=== PATIENT | female | born 1930 | race Caucasian/White ===

== ENCOUNTER → 2016-12-06 | Outpatient (CLI) | payer OTHER | LOC: BHFA 13:45 | PROVIDERS: ATTEND Internal Medicine Interventional Cardiology | DX: Z01.810 Encounter for preprocedural cardiovascular examination (principal); I71.4 Abdominal aortic aneurysm, without rupture; F17.200 Nicotine dependence, unspecified, uncomplicated; E78.5 Hyperlipidemia, unspecified ==

== ENCOUNTER → 2017-08-08 | Outpatient (CLI) | payer OTHER | LOC: FIMAGING 12:42 | PROVIDERS: ATTEND Physician Assistant Medical | DX: Z13.6 Encounter for screening for cardiovascular disorders (principal); I50.9 Heart failure, unspecified; R41.3 Other amnesia; Z87.891 Personal history of nicotine dependence ==

== ENCOUNTER 2018-05-14 09:49 | Inpatient (IN) | payer OTHER ==
[2018-05-14] MEDS ORDERED: NS 500 ML IV ONE ×3 (09:50→17:54)
--- NOTE | 2018-05-14 10:29 | EDPHY ---
H & P Stated Complaint: Fall, N/V/D. Time Seen by Provider: 05/14/18 09:50 HPI/ROS: CHIEF COMPLAINT: Diarrhea, syncope HISTORY OF PRESENT ILLNESS: 87-year-old female with atrial fibrillation presents after a syncopal episode. Onset of multiple episodes of diarrhea yesterday. This morning her daughter helped her to the bathroom. The patient began to feel lightheaded after having diarrhea and had a near syncopal episode. She did not fall or hurt herself. Started Lasix 2 days ago for increasing abdominal girth. According to the daughter, the patient has had gradually increasing confusion over the last week. She normally takes care of herself, tends to her garden and drives. Hands and feet are normally purple for the past year. The patient has no complaints. No fever or recent illness. REVIEW OF SYSTEMS: complete 10 point ROS reviewed and is negative except for the noted elements in the HPI - Personal History Current Tetanus Diphtheria and Acellular Pertussis (TDAP): Unsure - Medical/Surgical History Hx Asthma: No Hx Chronic Respiratory Disease: Yes Hx Diabetes: No Hx Cardiac Disease: Yes Hx Renal Disease: No Hx Cirrhosis: No Hx Alcoholism: No Hx HIV/AIDS: No Hx Splenectomy or Spleen Trauma: No Other PMH: COPD. Heart failure. - Social History Smoking Status: Never smoked Alcohol Use: None Drug Use: None - Physical Exam Exam: General Appearance: Alert, pleasant Eyes: Pupils equal and round, no conjunctival pallor ENT, Mouth: Mucous membranes dry Neck: Normal inspection Respiratory: Tachypnea, rales at the bases Cardiovascular: Irregularly irregular tachycardia Gastrointestinal: Abdomen is soft, distended and nontender Neurological: A&O, motor 5/5, sensory grossly intact Skin: Warm and dry Extremities: Hands and feet are purple and cool Vascular: 1+ peripheral pulses Psychiatric: Mood and affect normal Constitutional: Initial Vital Signs Temperature (C) 37.2 C 05/14/18 09:54 Heart Rate 143 H 05/14/18 09:54 Respiratory Rate 15 05/14/18 09:54 Blood Pressure 122/66 H 05/14/18 09:54 O2 Delivery Mode Nasal Cannula O2 (L/minute) 2 Allergies/Adverse Reactions: No Known Allergies Allergy (Unverified 05/14/18 10:09) Home Medications: Medication Instructions Recorded Atorvastatin Calcium [Lipitor 10 10 mg PO DAILY 05/14/18 mg (*)] Cholecalciferol (Vitamin D3) 4,000 unit PO DAILY 05/14/18 [Vitamin D3] Cyanocobalamin [Vitamin B12 (*)] 100 mcg PO DAILY 05/14/18 Furosemide [Lasix 20 MG (*)] 80 mg PO DAILY 05/14/18 Spironolactone [Aldactone 25 MG 25 mg PO DAILY 05/14/18 (*)] Warfarin Sodium [Coumadin 2.5MG 2.5 mg PO DAILY16 05/14/18 (*)] Medical Decision Making - Diagnostics EKG Interpretation: EKG interpreted by me reveals atrial fibrillation, ventricular rate ED Course/Re-evaluation: This patient presents with significant dehydration and atrial fibrillation with RVR. Hypotensive prior to arrival, now blood pressure 122/80. IV normal saline 500 mL given. I had a prolonged discussion with the patient's daughter. The patient has an advance directive and DNR status. No recent infection or fever. If heart rate does not decline with IV fluids, will consider IV diltiazem. Labs reveal acute renal failure, consistent with acute renal failure. This is most likely secondary to severe dehydration. IV fluids infusing. The hospitalist service was consulted for admission. The patient remains asymptomatic and denies any complaints. Oral fluids given at patient request. noon: HR subsiding with IVF, will continue gentle IVF for now. 2pm: HR 108-122, BP 95/62, IVF infusing. Pt feels much better overall, tolerating oral fluids. Awaiting inpt bed. Differential Diagnosis: Differential diagnosis includes though is not limited to hypotension, severe anemia, UTI, pneumonia, electrolyte abnormality. - Data Points Laboratory Results: Laboratory Results 05/14/18 10:25 05/14/18 10:25 Medications Given: Sodium Chloride (Ns) 1,000 mls @ 150 mls/hr IV CONT JUAN M Stop: 11/10/18 14:44 Last Admin: 05/15/18 01:08 Dose: 1,000 mls Ertapenem 0.5 gm/ Sodium (Chloride) 50 mls @ 100 mls/hr IV DAILY JUAN M PRN Reason: Protocol Stop: 06/13/18 17:44 Last Admin: 05/15/18 08:41 Dose: 50 mls Metronidazole/Sodium Chloride (Flagyl 500 Mg (Premix)) 100 mls @ 100 mls/hr IV Q8HRS JUAN M PRN Reason: Protocol Stop: 06/13/18 21:59 Last Admin: 05/15/18 14:25 Dose: 100 mls Vancomycin HCl (Vancocin Oral Liquid) 125 mg PO QID JUAN M PRN Reason: Protocol Stop: 06/13/18 20:59 Last Admin: 05/15/18 16:07 Dose: 125 mg Discontinued Medications Sodium Chloride (Ns) 500 mls @ 0 mls/hr IV EDNOW ONE; Wide Open PRN Reason: Protocol Stop: 05/14/18 09:51 Last Admin: 05/14/18 10:30 Dose: 500 mls Sodium Chloride (Ns) 500 mls @ 1,000 mls/hr IV EDNOW ONE PRN Reason: Protocol Stop: 05/14/18 11:45 Last Admin: 05/14/18 11:20 Dose: 500 mls Sodium Chloride (Ns) 1,000 mls @ 3,000 mls/hr IV ONCE ONE Stop: 05/14/18 15:10 Last Admin: 05/14/18 15:23 Dose: 1,000 mls Sodium Chloride (Ns) 500 mls @ 1,500 mls/hr IV ONCE ONE Stop: 05/14/18 18:13 Last Admin: 05/14/18 18:06 Dose: 500 mls Point of Care Test Results: Chemistry 05/14/18 10:39 POC Troponin I 0.05 ng/mL ng/mL (0.00-0.08) Departure - Departure Disposition: [facility] Acute Clinical Impression: Dehydration, Atrial fibrillation with RVR Acute renal failure Qualifiers: Acute renal failure type: unspecified Qualified Code(s): N17.9 - Acute kidney failure, unspecified Condition: Serious
[2018-05-14 11:17] LABS: PLATELET COUNT 395 10^3/uL (150-400)
[2018-05-14] MEDS ORDERED: ACETAMINOPHEN 325 MG TAB PO PRN (14:41)
[2018-05-14] MEDS ORDERED: ONDANSETRON 4 MG/2 ML VIAL IVP PRN (14:41)
[2018-05-14] MEDS ORDERED: ONDANSETRON DISINTEGRATING 4 MG TAB PO PRN (14:41)
[2018-05-14] MEDS ORDERED: NS 1,000 ML IV ONE (14:51)
[2018-05-14 15:39] LABS: INR 3.14 (0.83-1.16); PROTIME(PATIENT) 32.1 SEC (12.0-15.0)
--- NOTE | 2018-05-14 15:39 | CPEKG ---
Test Reason : OPEN Blood Pressure : / mmHG Vent. Rate : 136 BPM Atrial Rate : 166 BPM P-R Int : 207 ms QRS Dur : 127 ms QT Int : 318 ms P-R-T Axes : 000 046 -71 degrees QTc Int : 479 ms Atrial fibrillation Ventricular premature complex Right bundle branch block Confirmed by Mary Alice Yuen ([id number]) on 05/14/2018 3:39:22 PM Referred By: Confirmed By:Mary Alice Yuen
--- NOTE | 2018-05-14 15:49 | GHP ---
DATE OF ADMISSION: 05/14/2018 CHIEF COMPLAINT: Weakness, diarrhea. HPI: The patient is an 87-year-old with a history significant for COPD, peripheral vascular disease, and congestive heart failure, and AFib. She had a bout of diarrhea a week and a half ago for 4 days. It improved. However, her PCP stopped all of her medications. This included Lasix, Coumadin, simvastatin. Throughout the week, she has been quite weak, poor p.o. intake, more confused than usual. Her daughter was so worried about her, she has been staying with her throughout the week. She also noted at the end last week her abdomen was starting to look more distended, so she called her primary care provider on Monday night and resumed Lasix 80 mg Monday and Monday. Monday night she started having multiple bouts of diarrhea, at least 8 per day, and brought her into the emergency room this morning after her mother passed out after going to the bathroom. Arriving here, she was in rapid atrial fibrillation and hypotensive. She has been given some IV fluids with some improvement in her heart rate. However, blood pressure is still quite low. The patient herself really has minimal complaints. She has had no fevers, chills, cough, urinary symptoms. Her abdomen is distended, but not tender. She does have a history of purple hands and feet that the daughter and patient have neglected to follow up with for evaluation. REVIEW OF SYSTEMS: A comprehensive review of systems was done and is with pertinent positives present in HPI. PAST MEDICAL HISTORY: 1. CHF. I do not have a recent echocardiogram. One was done at the PCPs office, however, I am unable to get that. 2. Atrial fibrillation. Had been on Coumadin. However, she is in the middle of transitioning over to Eliquis. 3. AAA status post endograft. 4. Peripheral vascular disease. 5. COPD, likely ongoing tobacco use. 6. Chronic edema. 7. Dyslipidemia. SOCIAL HISTORY: She currently lives alone and has been relatively independent up until the last couple weeks. Her daughter is currently living with her. ALLERGIES: No known drug allergies. FAMILY HISTORY: Parents are . CURRENT MEDICATIONS: Please see medicine reconciliation form. PHYSICAL EXAMINATION: VITAL SIGNS: She is afebrile. Heart rate is initially 150, currently 120, blood pressure 94/59, respirations 27. She is 92% on 2 L. GENERAL: She is a debilitated 87-year-old, in no obvious distress. She is alert, but not oriented completely. HEENT: Pupils are equal and small. Extraocular movements intact. Mucous membranes are dry. NECK: Supple. No adenopathy. HEART: Irregularly, irregular with a systolic murmur. LUNGS: Bibasilar rales. ABDOMEN: Distended, but nontender. EXTREMITIES: No significant edema. Diminished pulses bilaterally. Her feet are discolored and her hands are discolored. NEUROLOGICALLY: Her speech is fluent. She is moving all 4 extremities. MUSCULOSKELETAL: No deformities. PSYCH: Normal affect. LABORATORY DATA: CBC shows a white count of 19.4, hemoglobin 16.8, with a platelet count 395. Electrolytes are unremarkable, however, CO2 16, with a BUN of 103, creatinine of 2.0, glucose of 108. Troponin is negative. Electrocardiogram shows atrial fibrillation with a rapid ventricular response. ASSESSMENT AND PLAN: 87-year-old presents with 1-2 weeks of increasing weakness associated with diarrhea, poor p.o. intake, presenting with renal failure, rapid atrial fibrillation, and possible congestive heart failure. 1. Diarrhea, unclear etiology. Will rule out infectious causes. However, certainly severe heart failure could also contribute to diarrhea due to bowel ischemia. We will support her with fluids and workup the rest of her issues. 2. Acute renal failure, likely due to dehydration. However, will check a renal ultrasound to rule out hydronephrosis. Check her urinalysis for possible infection, and give her IV fluids gently, given her heart failure. 3. Congestive heart failure. Patient with history congestive heart failure. I do not have any more information about that. Will get an echocardiogram, check a BNP, try to get her heart rate under better control. Further information will determine on the echocardiogram. 4. Chronic obstructive pulmonary disease. Patient is not currently on oxygen at baseline, however, requires oxygen at this time. We will check a chest x- ray. 5. Atrial fibrillation with rapid ventricular rate. She currently is on Coumadin. However, after stopping the Coumadin several days ago, her INR is still elevated. Will repeat that at this time and hold anticoagulation until she is in an acceptable range and then start Eliquis per her doctor's request. 6. Peripheral vascular disease, status post endograft with diminished pulses bilaterally, stable. 7. Dyslipidemia. We will hold her statin at this time, given her other medical issues. 8. Code status. Talked with her daughter. She wishes to be a Do Not Resuscitate. I talked in detail about plan of care. They would like to get more information and rule out infection. However, if it comes to invasive procedures, they would like to talk with the MD BANGURA, her daughter, first. /[id number]/MODL MTDD
--- NOTE | 2018-05-14 17:23 | ECHO ---
[email or web address] [address] [address] Main: [phone] Fax: [email or web address] Echocardiogram Name: ILYA DIAL MR#: [id number] Study Date: 05/14/2018 Study Time: 03:18 PM Date of : 1930 Age: 87 year(s) Height: 175.3 cm (69 in.) Weight: 58.97 kg (130 lb.) BSA: 1.72 m2 Gender: Female Examination: Echo Indication: CHF Image Quality: Technically Difficult Contrast: Requested by: Ellie James BP: 105 mmHg/66 mmHg Heart Rate: Rhythm: Atrial fibrillation Indication: CHF Procedure Staff Property Specialist: Mary Ellen Lora [facility] Reading Physician: Arturo Chopar MD Requesting Provider: Conclusions: Normal size left ventricle. Mild concentric LV hypertrophy. Normal global systolic LV function. EF is 60 %. Normal RV function. The left atrium is severely dilated. The right atrium is severely dilated. The aortic valve is tri-leaflet. Mild aortic cusp calcification is noted. Mild aortic valve regurgitation is present. PHT 546 ms. Right ventricular systolic pressure measures 29mmHg. Moderate tricuspid regurgitation is present. No pericardial effusion. Measurements: Chambers Valvular Assessment AV/MV Valvular Assessment TV/PV Normal Normal Normal Name Value Range Name Value Range Name Value Range Ao Shanae (MM): 3.4 cm (2.2 cm-3.7 AV Vmax: 1.69 m/s (1 m/s-1.7 TR Vmax: 2.47 mm/s ( - ) cm) m/s) TR PGmax: 24 mmHg ( - ) IVSd (2D): 1.2 cm (0.6 cm-1.1 AV maxP mmHg ( - ) syst. PAP: 29 mmHg ( - ) cm) LVOT Vmax: 1.22 m/s (0.7 m/s-1.1 LVDd (2D): 4.2 cm (3.9 cm-5.3 m/s) cm) PHILLY (Vmax): 2.7 cm2 ( - ) LVDs (2D): 2.6 cm (2.1 cm-4 AR (PHT): 546 ms ( - ) cm) MV E Vmax: 0.68 m/s ( - ) LVPWd (2D): 1.2 cm ( - ) LVOTd 2.2 cm 2.2 cm mm LVEF (MOD4): 60 % (>=55 %) Patient: ILYA DIAL Study Date: 05/14/2018 Page 1 of 2 03:18 PM RVDd(2D): 2.9 cm (1.9 cm-3.8 cmmm) Continued Measurements: Chambers Valvular Assessment AV/MV Valvular Assessment TV/PV Name Value Name Value Name Value LADs Lon.0 cm AR Vmax: 3.96 cm/s CVP (est.): 5 mmHg LA Area: 34.6 cm2 LA Volume: 129 ml LA Volume Index: 75.0 ml/m2 RA Area: 20.9 cm2 Additional Vessels Name Value Ao Ascendin.4 cm Findings: Left Ventricle: Normal size left ventricle. Mild concentric LV hypertrophy. Normal global systolic LV function. EF is 60 %. No regional wall motion abnormality. Unable to assess diastolic dysfunction. Right Ventricle: Normal size right ventricle. Normal RV function. Left Atrium: The left atrium is severely dilated. Right Atrium: The right atrium is severely dilated. Mitral Valve: There is mild thickening of the mitral valve leaflets. Moderate mitral annular calcification. Trivial mitral valve regurgitation. No mitral stenosis is present. Aortic Valve: The aortic valve is tri-leaflet. Mild aortic cusp calcification is noted. No aortic valve stenosis is present. Mild aortic valve regurgitation is present. PHT 546 ms. Tricuspid Valve: The tricuspid valve appears normal. Right ventricular systolic pressure measures 29mmHg. The pulmonary artery pressure is normal. Moderate tricuspid regurgitation is present. Pulmonic Valve: Pulmonary valve not well visualized. Aorta: Normal size aortic root measuring 3.4 cm. Normal size ascending aorta measuring 3.4 cm. IVC: The IVC is not visualized. Pericardium: No pericardial effusion. (No Signature Object) Patient: ILYA DIAL Study Date: 05/14/2018 Page 2 of 2 03:18 PM [id number]
--- NOTE | 2018-05-14 17:52 | HOSPPROG ---
Hospitalist Progress Note Assessment/Plan: fu after admit, Pt with cxr showing free air, Abdominal exam is benign however given her abdominal distension will have General surgery see and evaluate her. Will start her on Invanz, continue IV fluids and check an LDH for sepsis. Unclear if tachycardia is clearly from AFib or combination of AFib and sepsis. Patient also has significant urinary retention and a Krueger catheter was placed. Heart rate has improved significantly with IV fluids. Long discussion with family regarding the above findings and plan of care Greater than 30 min of critical care time spent with patient Objective: Vital Signs Temp Pulse Resp BP Pulse Ox 36.6 C 111 H 20 92/58 L 93 05/14/18 16:57 05/14/18 16:57 05/14/18 16:57 05/14/18 17:20 05/14/18 16:57 Laboratory Results 05/14/18 15:18 05/13/18 05/14/18 05/15/18 05:59 05:59 05:59 Intake Total 2000 Balance 1999 PT 32.1 SEC (12.0-15.0) H 05/14/18 15:14 INR 3.14 (0.83-1.16) H 05/14/18 15:14 ICD10 Worksheet Patient Problems: Problems Problem Status Onset Acute renal failure Acute Atrial fibrillation with RVR Acute Dehydration Acute Free intraperitoneal air Acute
[2018-05-14] MEDS: ERTAPENEM 0.5 GM in NS 50 ML IV SCH (18:32)
[2018-05-14] MEDS: NS 1,000 ML IV SCH (19:00)
--- NOTE | 2018-05-14 19:45 | SOAPPROG ---
SOAP Progress Note Assessment/Plan: Assessment: 87 female with free air and wbc 19k but nontender and afebrile, very distended and tympanitic ct shows descending colon obstruction and free air and ascites pt and family refusing surgery at this time INR >3 Plan:will observe but risks and options fully discussed including sepsis and 05/14/18 19:41 Objective: Vital Signs Temp Pulse Resp BP Pulse Ox 36.6 C 111 H 20 92/58 L 93 05/14/18 16:57 05/14/18 16:57 05/14/18 16:57 05/14/18 17:20 05/14/18 16:57 Microbiology 05/14/18 17:30 Gastrointestinal Tract Panel (PCR) - Final Stool Clostridium Difficile Detected Laboratory Results 05/14/18 15:18 05/13/18 05/14/18 05/15/18 05:59 05:59 05:59 Intake Total 2020 Output Total 450 Balance 1570 PT 32.1 SEC (12.0-15.0) H 05/14/18 15:14 INR 3.14 (0.83-1.16) H 05/14/18 15:14 ICD10 Worksheet Patient Problems: Problems Problem Status Onset Free intraperitoneal air Acute - ICD10 Problem Qualifiers (1) Free intraperitoneal air
[2018-05-14] MEDS: VANCOMYCIN 125 MG/2.5 ML UDL PO SCH (20:05)
[2018-05-15] MEDS: NS 1,000 ML IV SCH (01:08)
[2018-05-15 04:53] LABS: PLATELET COUNT 280 10^3/uL (150-400)
[2018-05-15] MEDS: VANCOMYCIN 125 MG/2.5 ML UDL PO SCH ×4 (05:35→21:46)
--- NOTE | 2018-05-15 08:04 | HOSPPROG ---
Hospitalist Progress Note Assessment/Plan: fu after admit, Pt with cxr showing free air, Abdominal exam is benign however given her abdominal distension will have General surgery see and evaluate her. Will start her on Invanz, continue IV fluids and check an LDH for sepsis. Unclear if tachycardia is clearly from AFib or combination of AFib and sepsis. Patient also has significant urinary retention and a Krueger catheter was placed. Heart rate has improved significantly with IV fluids. Long discussion with family regarding the above findings and plan of care Greater than 30 min of critical care time spent with patient Objective: Vital Signs Temp Pulse Resp BP Pulse Ox 36.4 C 105 H 19 85/54 L 98 05/15/18 07:23 05/15/18 07:23 05/15/18 04:00 05/15/18 07:23 05/15/18 07:23 Microbiology 05/14/18 17:30 Gastrointestinal Tract Panel (PCR) - Final Stool Clostridium Difficile Detected Laboratory Results 05/15/18 03:56 05/15/18 03:56 05/14/18 05/15/18 05/16/18 05:59 05:59 05:59 Intake Total 2020 Output Total 450 425 Balance 1570 -425 PT 32.1 SEC (12.0-15.0) H 05/14/18 15:14 INR 3.14 (0.83-1.16) H 05/14/18 15:14 ICD10 Worksheet Patient Problems: Problems Problem Status Onset Free intraperitoneal air Acute
[2018-05-15] MEDS: ERTAPENEM 0.5 GM in NS 50 ML IV SCH (08:41)
--- NOTE | 2018-05-15 14:35 | HOSPPROG ---
Hospitalist Progress Note Assessment/Plan: 87-year-old with COPD and ongoing tobacco use is admitted with several days of intermittent diarrhea, lightheadedness and was found to be in rapid AFib and hypotension. Evaluation revealed free air and fluid in her abdomen with minimal tenderness. She also has C diff colitis. # C diff colitis in the setting of a likely bowel obstruction and free air. I suspect the PO Vanco may not be absorbed well and IV Flagyl was added to her regimen. Her diarrhea is much improved today and her family would like to treat the C diff for comfort measures. * Continue IV Flagyl for now, Discussed with ID who has no specific recommendations in this case * IV flagyl til dc then transition to PO vanco at 250 qid and immodium as needed. * Diarrhea is improved # free air noted in the abdomen with fluid. CT scan concerning for bowel obstruction and likely perforation at that area. Case discussed in detail with surgery who met with the patient and the patient is declining any surgical intervention. I had a long discussion with the patient and daughter regarding the poor prognosis of this issue with or without surgical intervention. They are considering palliative care and hospice but are interested in treating the C diff colitis to avoid further diarrhea. * Continue to treat C diff with IV Flagyl while in hospital * treat peritonitis with ceftriaxone while in hospital and dc abx when dc with hospice. * Discussed with ID who agrees with plan (no formal consult). * Hospice consult in the morning for dc planning. If decompensates overnight, the family is aware that she might # sepsis in the setting of free air and peritonitis with minimal pain. Patient is hypotensive and tachycardic (due to AFib) given the fact she does not want definitive treatment with surgery I will not start her on the sepsis protocol but will treat her with antibiotics and supportive care with IV fluids as needed. She is a do not resuscitate and the family does not want extraordinary measures. * Decrease fluid slightly and watch blood pressure * Family aware of possibility of and agrees to make her comfortable tonight if she drops her pressure and not transfer to icu # AFib with rapid ventricular rate likely secondary to her above issues. * will follow, no treatment at this time, asymptomatic. # COPD, patient states she quit smoking but the daughter think she is still smoking some. * Follow clinically, respiratory status is relatively stable # AAA s/p endograft. Patient and family well aware of her very poor prognosis the goal is comfort and treatment of the C diff colitis. Family meeting with hospice tomorrow and will determine dc plans. Possible SNF with hospice [facility]. Subjective: Long discussion with patient and daughter regarding her prognosis in status. She continues to be comfortable but feels a little bit confused and has difficulty focusing on her conversation no abdominal pain Objective: Vital Signs Temp Pulse Resp BP Pulse Ox 36.5 C 109 H 18 93/56 L 98 05/15/18 12:00 05/15/18 12:00 05/15/18 12:00 05/15/18 12:00 05/15/18 12:00 Microbiology 05/14/18 17:30 Gastrointestinal Tract Panel (PCR) - Final Stool Clostridium Difficile Detected Laboratory Results 05/15/18 03:56 05/15/18 03:56 05/14/18 05/15/18 05/16/18 05:59 05:59 05:59 Intake Total 2020 Output Total 450 425 Balance 1570 -425 PT 32.1 SEC (12.0-15.0) H 05/14/18 15:14 INR 3.14 (0.83-1.16) H 05/14/18 15:14 - Physical Exam Constitutional: not in pain, chronically ill appearing Eyes: PERRL Ears, Nose, Mouth, Throat: moist mucous membranes Cardiovascular: irregularly irregular, tachycardia Respiratory: no respiratory distress, reduced air movement Gastrointestinal: distension, other (Umbilical hernia noted), No tenderness (No tenderness to deep palpation abdomen quite distended on exam) Genitourinary: holden in urethra Skin: No normal color (Pale) Musculoskeletal: generalized weakness Neurologic: No facial droop Psychiatric: interacting appropriately ICD10 Worksheet Patient Problems: Problems Problem Status Onset Free intraperitoneal air Acute Acute renal failure Acute Dehydration Acute Atrial fibrillation with RVR Acute
--- NOTE | 2018-05-15 15:06 | SOAPPROG ---
SOAP Progress Note Assessment/Plan: Assessment/Plan: 87 Y F c c dif colitis, free air, likely colonic perforation. Afib, tachycardia, hypotensive, JADE. Some improvement with fluid resuscitation, IV and PO flagyl and ertapenem. Cr now 1.7. HR still elevated but improved. Patient and daughter politely refusing surgical intervention. They understand that the situation is grave and potentially deadly without surgery. Per daughter, they have met with palliative care. Will be here if they change mind and wish to pursue surgery. Patient sleeping. Did not awaken. Spoke with daughter, POA, bedside. 05/15/18 15:02 Objective: Vital Signs Temp Pulse Resp BP Pulse Ox 36.5 C 109 H 18 93/56 L 98 05/15/18 12:00 05/15/18 12:00 05/15/18 12:00 05/15/18 12:00 05/15/18 12:00 Microbiology 05/14/18 17:30 Gastrointestinal Tract Panel (PCR) - Final Stool Clostridium Difficile Detected Laboratory Results 05/15/18 03:56 05/15/18 03:56 05/14/18 05/15/18 05/16/18 05:59 05:59 05:59 Intake Total 2020 Output Total 450 425 Balance 1570 -425 PT 32.1 SEC (12.0-15.0) H 05/14/18 15:14 INR 3.14 (0.83-1.16) H 05/14/18 15:14 ICD10 Worksheet Patient Problems: Problems Problem Status Onset Free intraperitoneal air Acute
--- NOTE | 2018-05-15 16:19 | ASMTCMCOM ---
CM Note CM Note Notes: 05/15/2018 Case Management Note Pt admitted for syncope and malaise. Hospice consult ordered. Jatinder from Palliative team met w/pt pt and children. Blanka [phone] and Vahe [phone]. Please see note for details. Faxed referral to [facility]. Family aware they will private pay for a room. Vahe to activate manager long term care care insurance policy. Discussed hospice agencies. Faxed referral to [facility]. Requested meetings with family tomorrow between 9 am and 1 pm. Case Management d/c poc: to be determined. SNF with hospice Case Management to follow. Date Signed: 05/15/2018 04:19 PM Electronically Signed By:Wilda Ocampo RN
[2018-05-15] MEDS ORDERED: LORazepam 2 MG/ML INJ IVP PRN (21:40)
--- NOTE | 2018-05-15 23:05 | PDMN ---
Medical Necessity Medical necessity: Pt meets IP criteria as of 05/14/2018 per and MCG M-160 ( sepsis); los > 2mn for ongoing tx and management of sepsis with hypotension and tachycardia in the setting of likely bowel obstruction with likely perforation as well as C.diff infection and afib.
[2018-05-16] MEDS: VANCOMYCIN 125 MG/2.5 ML UDL PO SCH ×4 (05:46→22:18)
[2018-05-16] MEDS: NS 1,000 ML IV SCH (07:19)
--- NOTE | 2018-05-16 08:59 | SOAPPROG ---
SOAP Progress Note Assessment/Plan: Assessment/Plan: 87 Y F c c dif colitis, free air, likely colonic perforation. Afib, tachycardia, hypotensive, JADE. Checked in again today. Patient still not wanting surgery. We will continue to follow from a distance but please contact us if patient and family change their minds. She is very lucid and is very aware that this is life threatening..."I'm 87," she says as she shrugs shoulders. Thanks. alert, oriented abd still distended, still NT, maybe slightly softer 05/16/18 08:59 Objective: Vital Signs Temp Pulse Resp BP Pulse Ox 36.2 C 102 H 20 97/61 L 93 05/16/18 07:40 05/16/18 07:40 05/16/18 07:40 05/16/18 07:40 05/16/18 07:40 Laboratory Results 05/15/18 03:56 05/15/18 03:56 05/15/18 05/16/18 05/17/18 05:59 05:59 05:59 Intake Total 1736 Output Total 1175 Balance 561 PT 32.1 SEC (12.0-15.0) H 05/14/18 15:14 INR 3.14 (0.83-1.16) H 05/14/18 15:14 ICD10 Worksheet Patient Problems: Problems Problem Status Onset Acute renal failure Acute Atrial fibrillation with RVR Acute Dehydration Acute Free intraperitoneal air Acute
--- NOTE | 2018-05-16 09:26 | HOSPPROG ---
Hospitalist Progress Note Assessment/Plan: 87yo F with COPD presented with diarrhea found to have C diff as well as free air in abdomen. She is also hypotensive and in afib with RVR. She is declining any aggressive measures or surgical intervention and now pursuing hospice. 1. Suspected bowel perforation: With free intra-abdominal air on imaging. - Surgery following. Patient not wanting any surgical intervention - Discontinue IV ceftriaxone and flagyl (no longer has IV access and not wanting additional IV) 2. C diff colitis - Continue PO vancomycin to complete course 3. Atrial fibrillation with RVR: Due to above. She is asymptomatic. - No treatment at this time. - Stopped warfarin 4. Sepsis with hypotension: BP ok but low. She denies dizziness. - She is ok with receiving IV fluids but does not want extraordinary measures 5. COPD: No exacerbation. 6. AAA s/p endograft. Goals of care: She and her family met with hospice today. This is in line with her goals and she has decision making capacity. Family looking at SNF. Dispo: Remain inpatient, possibly discharge tomorrow to SNF with hospice. Code: DNR/DNI Subjective: No abdominal pain. Eating breakfast. No change since yesterday. Still not wanting any aggressive measures/surgery. Objective: Vital Signs Temp Pulse Resp BP Pulse Ox 36.2 C 102 H 20 97/61 L 93 05/16/18 07:40 05/16/18 07:40 05/16/18 07:40 05/16/18 07:40 05/16/18 07:40 Laboratory Results 05/15/18 03:56 05/15/18 03:56 05/15/18 05/16/18 05/17/18 05:59 05:59 05:59 Intake Total 1736 Output Total 1175 Balance 561 PT 32.1 SEC (12.0-15.0) H 05/14/18 15:14 INR 3.14 (0.83-1.16) H 05/14/18 15:14 - Physical Exam Constitutional: no apparent distress, other (elderly, frail) Eyes: anicteric sclera Ears, Nose, Mouth, Throat: moist mucous membranes, hearing normal, ears appear normal, no oral mucosal ulcers Cardiovascular: tachycardia, No edema Respiratory: no respiratory distress, no rales or rhonchi, clear to auscultation Gastrointestinal: distension, No tenderness, No guarding Genitourinary: no bladder fullness, no bladder tenderness, no renal bruits Skin: no rashes or abrasions, no fluctuance, no induration Musculoskeletal: generalized weakness Neurologic: AAOx3 Psychiatric: interacting appropriately ICD10 Worksheet Patient Problems: Problems Problem Status Onset Acute renal failure Acute Atrial fibrillation with RVR Acute Dehydration Acute Free intraperitoneal air Acute
[2018-05-16] MEDS ORDERED: oxyCODONE IR 5 MG TAB PO PRN (18:46)
[2018-05-17] MEDS: VANCOMYCIN 125 MG/2.5 ML UDL PO SCH ×2 (06:21→12:42)
[2018-05-17 11:01] VITALS: BP 99/76
--- NOTE | 2018-05-17 12:12 | PDIAF ---
- Diagnosis Code Status: Do Not Resuscitate - Medication Management Additional Medication Instructions: Stopped warfarin and spironolactone. Continue PO vancomycin 125mg QID through 05/24/2018. Continue lasix 40mg QD. Start oxycodone 5mg PO Q4H PRN. Discharge Medications: electronically signed and located in the Home Medication List. PICC Care - Routine: N/A - Orders Isolation Type: CDIFF Isolation Diet Recommendation: no restrictions on diet Krueger: Not applicable Additional Instructions: The following medications were changed: - Decreased your lasix to 40mg once daily - Stopped your warfarin - You should continue oral vancomycin 125mg four times daily through 2018 - I stopped your spironolactone (will lower your blood pressure) - I have ordered oxycodone 5mg every 4 hours as needed for pain - Follow Up Care Current Providers and Referrals: Patient,NotPresent [Unknown] - As per Instructions
--- NOTE | 2018-05-17 12:15 | PDDCSUM ---
Discharge Summary Discharge Summary: Date of Admission: 05/14/2018 Date of Discharge: 05/17/2018 Consultants: general surgery Studies/Procedures: 1. TTE - LVEF 60%, normal RV function, severely dilated LA and RA, RVSP 29mmHg, moderate TR 2. Abdominal US - mild left hydronephrosis, very dilated loops of bowels throughout abdomen, small amount of ascites 3. 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 Suspected colonic perforation with free abdominal air, related to 2. Large bowel obstruction, in setting of 3. C difficile colitis 4. Severe sepsis with fluid responsive hypotension 5. Atrial fibrillation with RVR currently not on anticoagulation 6. Acute hypoxemic respiratory failure 7. Acute kidney injury 8. Hypovolemic hyponatremia 9. Chronic diastolic CHF 10. COPD 11. AAA s/p endograft 12. ? Bilateral UPJ obstructions, urinating ok without holden catheter Brief Hospital Course: 87yo F with COPD, Afib on warfarin, chronic diastolic CHF presented with diarrhea found to have C diff as well as a large amount of free air in abdomen. She was meeting severe sepsis criteria with JADE (Cr 2.0), hypotension, and developed atrial fibrillation with HR in the 140-150s. She was started on IV ceftriaxone, IV metronidazole, and PO vancomycin. General surgery was consulted. Numerous conversations were had with patient and family and patient elected to not have surgery. She did not want any aggressive measures besides IV antibiotics and IV fluids. She did not want aggressive measures or new medications to control her afib. Fortunately, she clinically improved with surgical intervention. Her hemodynamics were stable, creatinine down to 1.1, and abdominal distention had improved. She was still passing flatus at discharge. The patient and family met with 3 hospice services and decided on pursuing [facility]. She is being discharged to [facility]. The family is hopeful that she may be able to "graduate" from hospice if she continues to improve but are cautiously optimistic given her clinical situation. She is a DNR/DNI. Regarding her atrial fibrillation, we have decided to hold all anticoagulation for now due to risk of GI bleeding and fall risk. She should follow up with PCP regarding resuming this in the future. Lastly, she is requiring 4-5L of O2. This is partly due to mild pulmonary edema in setting of aggressive fluid resuscitation. We have resumed her diuretics at a lower dose. She was not having a COPD exacerbation. Medications: Please refer to EMR for complete list. Changes made this admission include the followin. Stopped warfarin and spironolactone. 2. Decreased lasix from 80 to 40mg QD 3. Started PO vancomycin 125mg QID through 05/24 Follow Up Plan: 1. Discharging to [facility] with hospice services Physical Exam: Vitals reviewed, afebrile, HR low 100s, SBP 100s. Alert and oriented, no focal neuro deficits, irregularly irregular and slightly tachycardic, lungs with bibasilar decreased breath sounds, abdomen distended but minimally tender, decreased bowel sounds, no rash or edema.
--- NOTE | 2018-05-17 13:11 | ASMTDCNOTE ---
Case Management Discharge Discharge Order Complete? Answers: Yes Patient to Obtain Answers: Other Notes: [facility] Medications Transportation Arranged Answers: [facility] Stretcher Transport will Pick (Date 05/17/2018 12:00 AM & Time) Case Management Transport Answers: Yes Notes: [facility] for [facility] Form Complete Faxed Final Orders Answers: Yes Notes: [facility] Agency/Facility Transfer Answers: Yes Notes: [facility] Report Printed & Faxed to Receiving Agency Family Notified Answers: Yes Notes: daughter, Blanka Discharge Comments Notes: Patient to discharge today to [facility] support. Discharge summaries Allscripted to both [facility].Transport arranged with [facility], patient going stretcher with 4L O2, at 15:30 today(). [facility] have been notified. No further needs. Date Signed: 05/17/2018 01:10 PM Electronically Signed By:Sonia Mary LCSW
--- NOTE | 2018-05-17 13:16 | PDIAF ---
- Diagnosis Code Status: Do Not Resuscitate - Medication Management Additional Medication Instructions: Stopped warfarin and spironolactone. Continue PO vancomycin 125mg QID through 05/24/2018. Continue lasix 40mg QD. Start oxycodone 5mg PO Q4H PRN. Discharge Medications: electronically signed and located in the Home Medication List. PICC Care - Routine: N/A - Orders Isolation Type: CDIFF Isolation Diet Recommendation: no restrictions on diet Krueger: Yes (Placed 05/15/2018.) Additional Instructions: The following medications were changed: - Decreased your lasix to 40mg once daily - Stopped your warfarin - You should continue oral vancomycin 125mg four times daily through 2018 - I stopped your spironolactone (will lower your blood pressure) - I have ordered oxycodone 5mg every 4 hours as needed for pain - Follow Up Care Current Providers and Referrals: Patient,NotPresent [Unknown] - As per Instructions
--- NOTE | 2018-05-17 13:28 | ASDISCHSUM ---
Discharge Information Plan Status:SNF Medically Cleared to Leave:05/16/2018 Discharge Date:05/16/2018 CM D/C Disposition:Care Home Facility ADT D/C Disposition:Care Home Facility Projected Discharge Date:05/17/2018 11:00 AM Transportation at D/C:Other Discharge Delay Reason: Follow-Up Date:05/17/2018 11:00 AM Discharge Slot:2 - 12:01 pm - 18:00 pm Final Diagnosis:AFIB, Renal failure, dehydration Placement Information Referral Type:*Hospice Referral ID:[id number] Provider Name:[facility] Address 1:[address] [place] Address 2: City:[place] Selection Factors: State:[place] Referral Type:*Usp/SNF Referral ID:[id number] Provider Name:[facility] Address 1:[address] Address 2: City:[place] Selection Factors: State:[place] Patient Contact Information Contact Name:VIC Relationship:Daughter Address: City: [facility] Phone: State/Zip Code: Email: Financial Information Financial Class:Medicare Primary Plan Desc:MEDICARE INPATIENT Primary Plan Number:[id number] Secondary Plan Desc:KEREN PETERSON Secondary Plan Number:[id number] Assessment Information [facility] CM Progress Note CM Note CM Note Notes: 05/15/2018 Case Management Note Pt admitted for syncope and malaise. Hospice consult ordered. Jatinder from Palliative team met w/pt pt and children. Blanka [phone] and Vahe [phone]. Please see note for details. Faxed referral to [facility]. Family aware they will private pay for a room. Vahe to activate longterm care insurance policy. Discussed hospice agencies. Faxed referral to [facility]. Requested meetings with family tomorrow between 9 am and 1 pm. Case Management d/c poc: to be determined. SNF with hospice Case Management to follow. Date Signed: 05/15/2018 04:19 PM Electronically Signed By:Wilda Ocampo RN Case Management Discharge Plan Note Case Management Discharge Discharge Order Complete? Answers: Yes Patient to Obtain Answers: Other Notes: [facility] Medications Transportation Arranged Answers: [facility] Stretcher Transport will Pick (Date 05/17/2018 12:00 AM & Time) Case Management Transport Answers: Yes Notes: PCS for [facility] Form Complete Faxed Final Orders Answers: Yes Notes: [facility] Agency/Facility Transfer Answers: Yes Notes: [facility] Report Printed & Faxed to Receiving Agency Family Notified Answers: Yes Notes: daughter, Blanka Discharge Comments Notes: Patient to discharge today to [facility] support. Discharge summaries Allscripted to both [facility].Transport arranged with [facility], patient going stretcher with 4L O2, at 15:30 today(19). [facility] have been notified. No further needs. Date Signed: 05/17/2018 01:10 PM Electronically Signed By:Sonia Mary LCSW Intervention Information
--- NOTE | 2018-05-17 13:29 | ASMTLACE ---
LACE Length of stay for Answers: 4-6 days current admission Acuity / Level of Answers: Yes Care: Did the patient have an inpatient admission? Comorbidities - select Answers: Chronic pulmonary disease all that apply Congestive heart failure Peripheral vascular disease Other Notes: AFib; Dyslipidemia # of Emergency department Answers: 1-2 visits in the last 6 months Score: 14 Date Signed: 05/17/2018 01:29 PM Electronically Signed By:Sonia Mary LCSW
== END 2018-05-17 15:40 | DRG 871 ==
LOC: EDUNIT# → INTOOBSV 11:39 → F2W 16:36 → OBSVTOIN 18:00
PROVIDERS: ADMIT Internal Medicine; ATTEND Internal Medicine
PROC: 0T9B70Z Drainage of Bladder with Drainage Device, Via Natural or Artificial Opening (ICD-10-PCS; principal; 2018-05-15)
DX: A41.9 Sepsis, unspecified organism (principal); K63.1 Perforation of intestine (nontraumatic); K65.9 Peritonitis, unspecified; J96.01 Acute respiratory failure with hypoxia; A04.72 Enterocolitis due to Clostridium difficile, not specified as recurrent; N17.9 Acute kidney failure, unspecified; E87.1 Hypo-osmolality and hyponatremia; I50.32 Chronic diastolic (congestive) heart failure; N13.0 Hydronephrosis with ureteropelvic junction obstruction; R18.8 Other ascites; R65.20 Severe sepsis without septic shock; E86.0 Dehydration; I48.91 Unspecified atrial fibrillation; J44.9 Chronic obstructive pulmonary disease, unspecified; E78.5 Hyperlipidemia, unspecified; R33.9 Retention of urine, unspecified; Z66 Do not resuscitate; Z79.01 Long term (current) use of anticoagulants
CPT/HCPCS: 84484-ER; J0696; J1335